=== PATIENT | female | born 1990 | race Caucasian/White ===

== ENCOUNTER 2018-06-11 08:04 | Day surgery (SDC) | payer MEDICAID ==
[2018-06-11] MEDS ORDERED: PROPOFOL 20 ML (09:16)
[2018-06-11] MEDS ORDERED: LIDOCAINE 2% (SDV) 5 ML INJ (09:16)
== END 2018-06-11 10:59 | disposition home or self-care (01) ==
LOC: GIL 08:04
DX: K29.30 Chronic superficial gastritis without bleeding (principal); R63.4 Abnormal weight loss; Z68.23 Body mass index [BMI] 23.0-23.9, adult
CPT/HCPCS: 43239; 84703; 88305; 88312